=== PATIENT | male | born 1940 | race Caucasian/White ===

== ENCOUNTER → 2016-10-21 | Day surgery (SDC) | payer MEDICARE, BC ==
[~2016-10-21] VITALS: Ht 148.6 cm; Wt 101.1 kg
[~2016-10-21] MED LIST: ACETAMINOPHEN650 M2 PO; ALIGN4 MG PO; AMARYL2 MG; ASPIRIN (CHILDR81 MG PO; BACITRACIN1 PKT; BACITRACIN15 GM TOP; COLACE100 MG PO; COREG6.25 MG; COREG6.25 MG PO; COUMADIN3 MG PO; DELTASONE20 MG; FLAGYL500 M1; FLAGYL500 M1 PO; FLOMAX0.4 MG PO; FLONASE 50 MCG/16 GM NOSE; GLUCAGON/GLUCAGE1 MG SUB-Q; GLUCOSE4 GM PO; ISORDIL10 MG PO; ISORDIL20 MG PO; JANUVIA25 MG; K-TAB 10MEQ10 MEQ PO; LANOXIN (DIGI125 MCG PO; LASIX40 MG PO; LEVEMIR100 UNIT/1 SUB-Q; LOVENOX100 MG/1 M SUB-Q; NORCO 10-325 T1 EACH PO; NOVOLOG100 UNIT/M; TOUJEO SOL300 UNIT/1 SUB-Q; VITAMIN D35000 UNI1 PO; ZESTORETIC 20-1 EACH; ZOCOR20 M1 PO; ZYLOPRIM300 MG PO
--- NOTE | ~2016-10-21 | OR ---
PATIENT'S NAME: JOAQUÍN LAI [facility] AGE: 76 Y [address] ROOM: [place] [address] [place] [facility] [place]: 10/21/2016 OR/Procedure Report DISCHARGE DATE: FAMILY PHYSICIAN: Ken Gross MD ATTENDING PHYSICIAN: ALEC MOHR SURGEON: Alec Mohr MD NAILER MACHINE: None. DATE OF PROCEDURE: 10/21/2016 PREOPERATIVE DIAGNOSES: 1. Acute urinary retention. 2. Benign prostatic hyperplasia with bladder outlet obstruction. 3. 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 POSTOPERATIVE DIAGNOSES: 1. Acute urinary retention. 2. Benign prostatic hyperplasia with bladder outlet obstruction. 3. 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 PROCEDURES: Cystourethroscopy with placement of difficult indwelling Koenig catheter. ANESTHESIA ADMINISTERED: Monitored anesthesia care. INDICATIONS FOR PROCEDURE: The patient is a pleasant 76-year-old male with a history of panurethral stricture disease for which he underwent perineal urethrostomy on March 10, 2015. He also has a history of BPH with elevated postvoid residual and had been started on tamsulosin 0.4 mg daily with improvement in his postvoid residual following pharmacologic therapy. He had some difficulty recently with constipation and incomplete bladder emptying and had presented to his primary care provider. Ultimately, he was found to be in acute retention and they were having difficulties with placing the Koenig catheter. The patient was explained the risks, benefits, indications, and alternatives to the above procedures and wished to proceed and consented freely. DESCRIPTION OF OPERATION: The patient was brought back to the operating room where he was placed on the operating room table in the supine position. A surgical time-out was called where patient identification, surgical site, and procedure were then verified. We also did verify that the patient received an IV cephalosporin antibiotic within an hour of beginning the procedure. The patient then underwent successful administration of monitored anesthesia care. He was then moved and placed in a low lithotomy position where his genital PATIENT'S NAME: JOAQUÍN LAI [facility] AGE: 76 Y [address] ROOM: [place] [address] [place] [facility] [place]: 10/21/2016 OR/Procedure Report DISCHARGE DATE: FAMILY PHYSICIAN: Ken Gross MD ATTENDING PHYSICIAN: ALEC MOHR area was then prepped and draped in the usual sterile fashion. I began by carefully advancing the rigid cystoscope into the patient's urinary bladder. The cystoscopy was performed via his perineal urethrostomy. I did not appreciate any evidence of urethral stricture as I was able to successfully pass a 21-Lithuanian rigid cystoscope into the patient's bladder. The patient did, however, have evidence of moderate to severe bilobar hyperplasia of the prostate with an obstructing prostatic urethra. He did not have any evidence of median prostatic lobe. I then used the 70-degree lens to perform a full michaels cystoscopy. His ureteral orifices were noted to be in their orthotopic location. There was no evidence of any bladder tumors or bladder stones. His bladder did have evidence, however, of long-term bladder outlet obstruction including moderate to severe bladder trabeculation noted throughout. Then, through the cystoscope, I advanced a Super Stiff guidewire given his history of difficult Koenig catheterization and withdrew the cystoscope leaving the wire in place. Then, I advanced an 18-Lithuanian Bowie tip Koenig catheter over the wire easily into the patient's urinary bladder and removed the wire leaving the catheter in place after placing 10 mL of sterile water in the balloon. The catheter was then placed to gravity drainage. The patient was then taken out of the lithotomy position where he was then awoken from monitored anesthesia care, transferred to the recovery bed, and transported to the recovery room in good condition. COMPLICATIONS: None. DRAINS: Indwelling 18-Lithuanian Koenig catheter to gravity drainage. SPECIMENS: None. FOLLOWUP PLAN: We will plan to have the patient follow back up with me on Monday October 24, 2016 for followup and to further discuss his treatment options. Given his significant BPH and with retention despite tamsulosin, I think he would be a good candidate for surgical therapy for his BPH including the UroLift procedure. ALEC MOHR MD GP/elsyl /[id number] CC: Ken Gross MD d: 10/22/16 0039 t: 10/22/16 1555, OPERATIVE SUMMARY
--- NOTE | ~2016-10-21 | HP ---
PATIENT'S NAME: JOAQUÍN LAI [facility] AGE: 76 Y [address] ROOM: [place], [place] [address] [place] [facility] [place]: 10/21/2016 History & Physical DISCHARGE DATE: FAMILY PHYSICIAN: Ken Gross MD ATTENDING PHYSICIAN: ALEC WASHINGTON DATE OF SERVICE: 10/21/2016 CHIEF COMPLAINT: Urinary retention. HISTORY OF PRESENT ILLNESS: The patient is a pleasant 76-year-old male, who had presented to his primary care provider today with complaints of constipation and incomplete bladder emptying. He was placed on a bowel regimen, and despite getting some of his bowels cleared out, he was still having difficulty with voiding, and they were having trouble getting a catheter in place in [place], [place], and sent him down for further evaluation. He had apparently over 800 mL on bladder scan and it was quite uncomfortable given his full bladder. The patient does have a complex urologic history including panurethral stricture disease and had underwent multiple urethral dilations with recurrent urethral stricture disease. Ultimately, he underwent a perineal urethrostomy on March 10, 2015. He had been doing great with no evidence of a stricture of the urethrostomy. He does have a history of BPH with postvoid residual on April 19, 2015 of 203 mL. At that time, he was started on tamsulosin 0.4 mg daily, and was seen back on July 23, 2015, with a postvoid residual of 29 mL. He has possibly noted some weakening of his urinary stream recently despite taking the tamsulosin. The patient has denied any gross hematuria. PAST MEDICAL HISTORY: 1. BPH. 2. Panurethral stricture disease. 3. Dilated cardiomyopathy with left ventricular aneurysm, on chronic anticoagulation therapy with Coumadin. 4. History of congestive heart failure. 5. Paroxysmal ventricular tachycardia. 6. Coronary artery disease, status post angioplasty. 7. Hypertension. 8. Hyperlipidemia. 9. Diabetes mellitus type 2. 10. Obstructive sleep apnea. 11. Osteoarthritis. 12. GERD. 13. Hearing loss. PATIENT'S NAME: JOAQUÍN LAI [facility] AGE: 76 Y [address] ROOM: [place], [place] [address] [place] [facility] [place]: 10/21/2016 History & Physical DISCHARGE DATE: FAMILY PHYSICIAN: Ken Gross MD ATTENDING PHYSICIAN: ALEC WASHINGTON PAST SURGICAL HISTORY: 1. Multiple cystoscopies with urethral dilations in the past. 2. Perineal urethrostomy on March 10, 2015. 3. Left total knee arthroplasty. 4. Intraocular lens implant. 5. Cholecystectomy. 6. AICD [facility] dual chamber pacer insertion. 7. Bilateral cataract surgery. SOCIAL HISTORY: The patient is retired. He quit smoking in 1987. He has a history of smoking for at least 20 years. He does drink alcohol on rare occasion. FAMILY HISTORY: The patient denies any known family history of genitourinary abnormalities or malignancy. ALLERGIES: TO BACTRIM (NAUSEA/VOMITING). MEDICATIONS: Please see hospitalization medication reconciliation. REVIEW OF SYSTEMS: A full 10+ point review of systems was performed. Please see history of present illness for pertinent positive and negative findings. All other systems were reviewed and are otherwise negative. PHYSICAL EXAMINATION: VITAL SIGNS: Stable. CONSTITUTIONAL: The patient is in mild distress. He is awake and oriented. HEENT: Extraocular muscles intact. Mucous membranes moist. RESPIRATORY: No audible wheezing or stridor. Respirations unlabored. CARDIAC: Good peripheral perfusion. No tachycardia. ABDOMEN: Soft, nontender, nondistended. The patient does have some suprapubic discomfort on palpation. GENITOURINARY: Testes are palpably normal. He has a circumcised phallus. There is no urethral opening as his urethra is completely scarred down. His perineal urethrostomy still appears patent and healthy. There is no blood at his perineal urethrostomy site. EXTREMITIES: No clubbing, cyanosis, or edema. MUSCULOSKELETAL: Moves all extremities. NEUROLOGIC: No focal deficits noted. HEMATOLOGIC: No active sites of bruising or bleeding. PATIENT'S NAME: JOAQUÍN LAI [facility] AGE: 76 Y [address] ROOM: [place] [address] [place] [facility] [place]: 10/21/2016 History & Physical DISCHARGE DATE: FAMILY PHYSICIAN: Ken Gross MD ATTENDING PHYSICIAN: ALEC WASHINGTON IMPRESSION: 1. Acute urinary retention. 2. Benign prostatic hyperplasia with bladder outlet obstruction. 3. History of panurethral stricture disease, status post perineal urethrostomy. PLAN: I had a long discussion today with the patient regarding my findings and recommendations. Given his acute urinary retention and history of difficult Koenig catheterization, I recommended further evaluation with cystoscopy today and placement of Koenig catheter. I also discussed possible urethral dilation should he be found to have a urethral stricture as well as possible suprapubic tube catheter placement if we are unable to place a urethral catheter. I did explain to the patient the risks, benefits, indications, and alternatives to his options, and he wished to proceed with cystoscopy and consented freely. ALEC WASHINGTON MD GP/modl /[id number] CC: Ken Gross MD D: [id number] T: [id number] HISTORY & PHYSICAL
== END ==
LOC: GSDC 16:56
PROC: 0T9B80Z Drainage of Bladder with Drainage Device, Via Natural or Artificial Opening Endoscopic (ICD-10-PCS; principal; 2016-10-21)
DX: N40.1 Benign prostatic hyperplasia with lower urinary tract symptoms (principal); R33.8 Other retention of urine; N13.8 Other obstructive and reflux uropathy; I11.0 Hypertensive heart disease with heart failure; I50.9 Heart failure, unspecified; I25.10 Atherosclerotic heart disease of native coronary artery without angina pectoris; I42.8 Other cardiomyopathies; I47.2 Ventricular tachycardia; E11.9 Type 2 diabetes mellitus without complications; G47.33 Obstructive sleep apnea (adult) (pediatric); E78.5 Hyperlipidemia, unspecified; K21.9 Gastro-esophageal reflux disease without esophagitis; M19.90 Unspecified osteoarthritis, unspecified site; Z87.891 Personal history of nicotine dependence; Z79.4 Long term (current) use of insulin; Z96.652 Presence of left artificial knee joint; Z98.42 Cataract extraction status, left eye; Z98.41 Cataract extraction status, right eye; Z90.49 Acquired absence of other specified parts of digestive tract; Z79.899 Other long term (current) drug therapy
CPT/HCPCS: J0690; J2001; J7030